=== PATIENT | male | born 1965 | race African-American/Black ===

== ENCOUNTER 2018-08-15 03:23 | Emergency (ER) | payer OTHER ==
[2018-08-15 03:33] VITALS: BP 118/74; PULSE 95; TEMP 97.7; BMI 20.9
[2018-08-15] MEDS ORDERED: LIDOCAINE HCL 2% (50ML VIAL) INF ONE (04:05)
[2018-08-15] MEDS ORDERED: LIDOCAINE HCL 2% (20ML MULTI-DOSE VIAL) NR ONE (04:07)
--- NOTE | 2018-08-15 04:44 | PDOC ---
History of Present Illness - General Chief Complaint: Pain Stated Complaint: THUMB PAIN Time Seen by Provider: 08/15/18 03:50 History Source: Patient Exam Limitations: No Limitations Past History - Suicide/Smoking/Psychosocial Hx Smoking History: Unknown if ever smoked *Physical Exam - Vital Signs Last Vital Signs Temp Pulse Resp BP Pulse Ox 97.7 F 95 H 19 118/74 100 08/15/18 03:31 08/15/18 03:31 08/15/18 03:31 08/15/18 03:31 08/15/18 03:31 - Physical Exam General Appearance: No: Apparent Distress Extremity: positive: Normal Capillary Refill, Other (+ L thumb paronychia, no erythema, no streaking, no evidence of felon). negative: Erythema Integumentary: negative: Erythema, Swelling, Ecchymosis Neurologic: positive: Alert, Normal Mood/Affect Procedures - Incision and Drainage I&D Site: Left: Paronychia Betadine cleansed: Yes Anesthesia: 2% Lidocaine Blade Size: 11 Attempts: 1 Complications: none Medical Decision Making - Medical Decision Making 53 y/o M hx of depression, glaucoma presents with L thumb infection. States he pulled out end off nail 2 days ago and then yesterday, noted swelling of L thumb. Denies fever. L thumb paronychia - drained successfully 08/15/18 04:37 *DC/Admit/Observation/Transfer Diagnosis at time of Disposition: Paronychia - Discharge Dispostion Disposition: HOME Condition at time of disposition: Stable Decision to Admit order: No - Referrals Referrals: Alec Nicole MD [Primary Care Provider] - 2 Days - Patient Instructions Printed Discharge Instructions: DI for Paronychia Additional Instructions: Thank you for choosing [facility]. It was a pleasure taking care of you. Continue warm soaks three- four times a day You may apply topical Bacitracin or Neosporin on site Follow-up with your doctor in 2-3 days Return to the Emergency Department if your symptoms worsen or persist, you have fever, increased swelling/redness, streaking or other concerning symptoms. - Post Discharge Activity
== END 2018-08-15 04:40 | disposition home or self-care (01) ==
LOC: JER 03:23
PROC: 0J9K3ZZ Drainage of Left Hand Subcutaneous Tissue and Fascia, Percutaneous Approach (ICD-10-PCS; principal; 2018-08-15)
DX: L03.012 Cellulitis of left finger (principal)
CPT/HCPCS: 10060; 99282-25

== ENCOUNTER 2024-01-04 04:31 | Day surgery (SDC) | payer OTHER ==
[2023-12-28 07:50] VITALS: BMI 22.3
[2024-01-04 11:55] VITALS: TEMP 97.6
[2024-01-04 12:34] VITALS: BP 124/75; PULSE 57; RESP 18
== END 2024-01-04 13:00 | disposition home or self-care (01) ==
LOC: JASU-ENDO 04:31
PROVIDERS: ATTEND Internal Medicine Gastroenterology
PROC: 0DBK8ZX Excision of Ascending Colon, Via Natural or Artificial Opening Endoscopic, Diagnostic (ICD-10-PCS; principal; 2024-01-04 11:00)
DX: Z12.11 Encounter for screening for malignant neoplasm of colon (principal); D12.2 Benign neoplasm of ascending colon; K64.8 Other hemorrhoids; Z86.010 Personal history of colon polyps
CPT/HCPCS: 88305-TC